=== PATIENT | male | born 1945 | race Caucasian/White ===

== ENCOUNTER → 2019-07-04 | Outpatient (CLI) | payer MEDICARE | END | disposition home or self-care (01) | LOC: RAH 12:47 | PROVIDERS: ATTEND Physical Medicine & Rehabilitation | DX: M47.816 Spondylosis without myelopathy or radiculopathy, lumbar region (principal); M25.78 Osteophyte, vertebrae; M48.061 Spinal stenosis, lumbar region without neurogenic claudication | CPT/HCPCS: 72100 ==

== ENCOUNTER → 2020-12-31 | Outpatient (CLI) | payer MEDICARE ==
[~2020-12-31] MED LIST: AEC81 PO; ASCO250T22 PO; ATOR40TA69 PO; CALC-1125 PO; CANN100S PO; FERR-82 PO; FEXO180T94 PO; FINA1TAB13 PO; GABA-529 PO; GABA300C PO; GUAI600T50 PO; HYDR-4060 PO; HYDR12.54 PO; IRBE300T18 PO; MAGN500C15 PO; MELA5CAP PO; MULT-1258 PO; OMEP-459 PO; RELIEF FACTOR PO; ROPI1TAB13 PO; ROPI2TAB7 PO; VITAMIN E PO; ZINC220T4 PO
== END | disposition home or self-care (01) ==
LOC: RAH 10:20
PROVIDERS: ATTEND Physical Medicine & Rehabilitation
DX: M47.816 Spondylosis without myelopathy or radiculopathy, lumbar region (principal); M51.27 Other intervertebral disc displacement, lumbosacral region; M48.061 Spinal stenosis, lumbar region without neurogenic claudication
CPT/HCPCS: 72148

== ENCOUNTER 2021-04-28 06:20 | Day surgery (SDC) | payer MEDICARE ==
[2021-04-25 11:30] LABS: BASOPHILS % (AUTO) 0.6 % (0.0-5.0); EOSINOPHILS % (AUTO) 2.9 % (0.0-8.0); HEMATOCRIT 40.3 % (42-54); LYMPHOCYTES % (AUTO) 30.1 % (21.0-51.0); MEAN CORPUSCULAR HEMOGLOBIN 31.2 pg (27.0-33.0); MEAN CORPUSCULAR HGB CONC 32.5 g/dL (32.0-36.0); MONOCYTES % (AUTO) 9.6 % (3.0-13.0); PLATELET COUNT (AUTO) 254 K/uL (130-400); RED CELL DISTRIBUTION WIDTH 15.6 % (11.0-15.5); WHITE BLOOD COUNT (AUTO) 7.7 K/uL (4.8-10.8)
[2021-04-25 11:48] LABS: CREATININE 0.9 mg/dL (0.5-1.5); POTASSIUM 4.3 mmol/L (3.5-5.1)
[2021-04-28] VITALS (11 sets, daily range): BP systolic 107–149; BP diastolic 56–74
[~2021-04-28 06:20] MED LIST changes: +ACET-2743 PO; -AEC81 PO; +ASCO125T PO; -ASCO250T22 PO; +ASPI-1443 PO; +ATOR-2 PO; -ATOR40TA69 PO; +CALC-1009 PO; -CALC-1125 PO; -CANN100S PO; +CELE200 PO; -FERR-82 PO; -FINA1TAB13 PO; -GABA-529 PO; -GABA300C PO; +GLUC-29 PO; -HYDR-4060 PO; -MAGN500C15 PO; -MELA5CAP PO; +NAPR220T57 PO; -OMEP-459 PO; +OMEP20TA25 PO; +PREG75CA75 PO; -RELIEF FACTOR PO; -ROPI1TAB13 PO; +ROPI2TAB29 PO; -ROPI2TAB7 PO; +TAMS-1 PO; +TRIA10.8 NS; -VITAMIN E PO; -ZINC220T4 PO; +ZINC50TA71 PO; +[UNRECOGNIZED DRUG - OTHER] PO; +tumeric PO
[2021-04-28] MEDS: CEFAZOLIN SODIUM 1 GM VIAL IVP SCH ×2 (07:00→08:37)
[2021-04-28] MEDS ORDERED: LACTATED RINGERS 1000ML 1,000 ML IV ONE (07:02)
[2021-04-28] MEDS ORDERED: BUPIVACAINE/PF 0.25% 30ML VIAL IJ ONE (07:52)
[2021-04-28] MEDS ORDERED: LIDOCAINE HCL MDV 0.5% 50ML VIAL IJ ONE (08:02)
[2021-04-28] MEDS ORDERED: LABETALOL 20MG VIAL IV ONE (08:02)
[2021-04-28] MEDS ORDERED: MIDAZOLAM HCL 1 MG/ML 2ML VIAL ONE (08:03)
[2021-04-28] MEDS ORDERED: PROPOFOL 10 MG/ML 20ML VIAL IV ONE ×2 (08:03→09:08)
[2021-04-28] MEDS ORDERED: KETOROLAC 30MG VIAL (30MG/ML) ONE (08:04)
[2021-04-28] MEDS ORDERED: FENTANYL CITRATE PF 50 MCG/1 ML 2ML VIAL ONE (08:08)
[2021-04-28] MEDS ORDERED: BUPIVACAINE/PF 0.5% 30ML VIAL ONE (08:31)
[2021-04-28] MEDS ORDERED: CEPH500B PO (09:32)
[2021-04-28] MEDS ORDERED: ACET1TAB25 PO (09:32)
== END 2021-04-28 10:35 ==
LOC: DAH 06:20
PROVIDERS: ATTEND Orthopaedic Surgery
DX: G56.01 Carpal tunnel syndrome, right upper limb (principal); M25.531 Pain in right wrist; R29.898 Other symptoms and signs involving the musculoskeletal system; I10 Essential (primary) hypertension; Z79.01 Long term (current) use of anticoagulants; Z79.899 Other long term (current) drug therapy
CPT/HCPCS: 36415; 64721; 80048; 85025; 87635; 93005; A4213; A4215 ×2; A4221; A4222; A4223; A4565; A4663; A4930 ×2; A5120; A6223; C9803; J0690; J1885; J2250; J2704 ×2; J3010; J3490 ×3; J7120

== ENCOUNTER → 2021-09-09 | Outpatient (CLI) | payer MEDICARE ==
[~2021-09-09] MED LIST changes: +ACET-2079 PO; +CEPH500B PO; +OMEP20TA20 PO; -OMEP20TA25 PO
== END | disposition home or self-care (01) ==
LOC: RAH 10:23
PROVIDERS: ATTEND Physical Medicine & Rehabilitation
DX: M47.22 Other spondylosis with radiculopathy, cervical region (principal); Z98.1 Arthrodesis status
CPT/HCPCS: 72141

== ENCOUNTER 2022-05-18 09:57 | Emergency (ER) | payer MEDICARE ==
[~2022-05-18] VITALS: Ht 188 cm; Wt 108.9 kg
[2022-05-18 10:31] LABS: BASOPHILS % (AUTO) 0.8 % (0.0-5.0); EOSINOPHILS % (AUTO) 1.7 % (0.0-8.0); HEMATOCRIT 40.5 % (42-54); LYMPHOCYTES % (AUTO) 33.7 % (21.0-51.0); MEAN CORPUSCULAR HEMOGLOBIN 29.5 pg (27.0-33.0); MEAN CORPUSCULAR HGB CONC 33.8 g/dL (32.0-36.0); MEAN CORPUSCULAR VOLUME 87.3 fL (79-99); MONOCYTES % (AUTO) 10.5 % (3.0-13.0); NEUTROPHILS % (AUTO) 52.6 % (40.0-77.0); PLATELET COUNT (AUTO) 224 K/uL (130-400); RED BLOOD CELL COUNT(AUTO) 4.64 MIL/uL (4.50-6.20); RED CELL DISTRIBUTION WIDTH 15.3 % (11.0-15.5); WHITE BLOOD COUNT (AUTO) 7.2 K/uL (4.8-10.8)
[2022-05-18 10:37] LABS: APPEARANCE,URINE CLEAR (CLEAR); BILIRUBIN,URINE NEGATIVE (NEGATIVE); COLOR,URINE LIGHT-YELLOW (YELLOW); GLUCOSE, URINE (UA) NEGATIVE (NEGATIVE); KETONES,URINE NEGATIVE (NEGATIVE); LEUKOCYTE ESTERASE ,URINE NEGATIVE Leu/uL (NEGATIVE); NITRATE,URINE NEGATIVE (NEGATIVE); OCCULT BLOOD,URINE NEGATIVE (NEGATIVE); PH,URINE 5.5 (5.0-8.0); PROTEIN,URINE NEGATIVE (NEGATIVE); UROBILINOGEN,URINE 0.2 mg/dL (0.2-1.0)
[2022-05-18 10:46] LABS: POTASSIUM 4.5 mmol/L (3.5-5.1)
[2022-05-18 10:48] LABS: B-TYPE NATRIURETIC PEPTIDE 31 pg/mL (0-100)
[2022-05-18 10:51] LABS: ALBUMIN 3.7 g/dL (3.5-5.0); TOTAL PROTEIN, SERUM 7.7 g/dL (6.0-8.3)
[2022-05-18] MEDS ORDERED: 0.9%NACL 1000ML 1,000 ML IV ONE (12:00)
[2022-05-18 12:52] VITALS: BP 156/78
== END 2022-05-18 13:04 | disposition home or self-care (01) ==
LOC: EDH 09:57
DX: F41.9 Anxiety disorder, unspecified (principal); E86.0 Dehydration; I10 Essential (primary) hypertension; E78.5 Hyperlipidemia, unspecified; Z79.899 Other long term (current) drug therapy; Z20.822 Contact with and (suspected) exposure to COVID-19
CPT/HCPCS: 99285; 84484; 80053; 83880; 85025; 87804 ×2; 81003; 36415; 87635; 71045; 96360; 93005; C9803; J7030

== ENCOUNTER → 2023-07-12 | Outpatient (CLI) | payer MEDICARE ==
[~2023-07-12] MED LIST changes: -IRBE300T18 PO; +IRBE300T26 PO; -PREG75CA75 PO; +PREG75CA76 PO
== END | disposition home or self-care (01) ==
LOC: RAH 10:41
PROVIDERS: ATTEND Physician Assistant
DX: M47.816 Spondylosis without myelopathy or radiculopathy, lumbar region (principal); M51.27 Other intervertebral disc displacement, lumbosacral region; M48.07 Spinal stenosis, lumbosacral region
CPT/HCPCS: 72148

== ENCOUNTER 2023-09-05 09:50 | Emergency (ER) | payer MEDICARE ==
[~2023-09-05] VITALS: Ht 188 cm; Wt 111.1 kg
[2023-09-05] MEDS: METOCLOPRAMIDE 10 MG/2 ML VIAL IVP ONE (10:35)
[2023-09-05] MEDS: FAMOTIDINE 20MG VIAL IV ONE (10:35)
[2023-09-05] MEDS: DIAZEPAM 5 MG/ML 2 ML SYG IVP ONE (10:36)
[2023-09-05] MEDS: KETOROLAC 30MG VIAL (30MG/ML) IVP ONE (10:36)
[2023-09-05 11:32] VITALS: BP 192/89; PULSE 60; RESP 16; O2SAT 95
[2023-09-05] MEDS: FENTANYL CITRATE PF 50 MCG/1 ML 2ML VIAL IVP ONE (11:46)
[2023-09-05] MEDS ORDERED: CYCL10TA16 PO (13:19)
[2023-09-05] MEDS ORDERED: MELO-106 PO (13:19)
[2023-09-05] MEDS ORDERED: ACET-2079 PO (13:19)
== END 2023-09-05 13:29 | disposition home or self-care (01) ==
LOC: EDH 09:50
DX: M47.898 Other spondylosis, sacral and sacrococcygeal region (principal); M54.50 Low back pain, unspecified; I10 Essential (primary) hypertension; E78.00 Pure hypercholesterolemia, unspecified; E11.9 Type 2 diabetes mellitus without complications; K21.9 Gastro-esophageal reflux disease without esophagitis; Z96.641 Presence of right artificial hip joint; Z91.030 Bee allergy status; Z79.899 Other long term (current) drug therapy
CPT/HCPCS: 99284; 96374; 96375; 72110; 72220; J3490; J3010; J3360; J1885; J2765

== ENCOUNTER 2023-09-08 08:37 | Emergency (ER) | payer MEDICARE ==
[~2023-09-08] VITALS: Ht 190.5 cm; Wt 111.1 kg
[~2023-09-08 08:37] MED LIST changes: +CYCL10TA16 PO; +MELO-106 PO
[2023-09-08] MEDS: FAMOTIDINE 20MG VIAL IV ONE (09:26)
[2023-09-08] MEDS: METOCLOPRAMIDE 10 MG/2 ML VIAL IVP ONE (09:26)
[2023-09-08] MEDS: HYDROMORPHONE 1 MG INJ IVP ONE (09:27)
[2023-09-08] MEDS: KETOROLAC 30MG VIAL (30MG/ML) IVP ONE (09:27)
[2023-09-08] MEDS: DIAZEPAM 5 MG/ML 2 ML SYG IVP ONE (09:27)
[2023-09-08 09:38] LABS: HEMATOCRIT 36.5 % (42-54); MEAN CORPUSCULAR HEMOGLOBIN 31.7 pg (27.0-33.0); MEAN CORPUSCULAR HGB CONC 34.2 g/dL (32.0-36.0); MEAN CORPUSCULAR VOLUME 92.6 fL (79-99); PLATELET COUNT (AUTO) 252 K/uL (130-400); RED BLOOD CELL COUNT(AUTO) 3.94 MIL/uL (4.50-6.20); RED CELL DISTRIBUTION WIDTH 13.5 % (11.0-15.5); WHITE BLOOD COUNT (AUTO) 10.8 K/uL (4.8-10.8)
[2023-09-08 09:43] LABS: CREATININE 0.9 mg/dL (0.5-1.3); POTASSIUM 5.5 mmol/L (3.5-5.1)
[2023-09-08 10:53] LABS: LYMPHOCYTES % (MANUAL) 35 % (22-44); MAN.DIFF COMMENT-IMPRESSION MANUAL DIFFERENTIAL; MONOCYTES % (MANUAL) 5 % (2-9); PLATELET MORPHOLOGY COMMENT ADEQUATE; SEGMENTED NEUTROPHILS % 60 % (40-70); TOTAL CELLS COUNTED 100; WBC MORPHOLOGY CONSISTENT W/DIFF
[2023-09-08 13:59] VITALS: BP 141/76; PULSE 64; RESP 18; O2SAT 99
[2023-09-08] MEDS: HYDROMORPHONE 0.5 MG SYG (0.5MG/0.5ML) IVP ONE (15:13)
== END 2023-09-08 13:23 | disposition short-term general hospital (02) ==
LOC: EDH 08:37
DX: M47.816 Spondylosis without myelopathy or radiculopathy, lumbar region (principal); M48.061 Spinal stenosis, lumbar region without neurogenic claudication; I10 Essential (primary) hypertension; E11.9 Type 2 diabetes mellitus without complications; E78.00 Pure hypercholesterolemia, unspecified; K21.9 Gastro-esophageal reflux disease without esophagitis; Z79.82 Long term (current) use of aspirin; Z79.899 Other long term (current) drug therapy; Z98.890 Other specified postprocedural states; Z91.030 Bee allergy status; Z96.641 Presence of right artificial hip joint
CPT/HCPCS: 99285; 96374; 96375; 80048; 85025; 36415; J3490; J1170 ×2; J3360; J1885; J2765

== ENCOUNTER → 2024-03-20 | Outpatient (CLI) | payer MEDICARE ==
--- NOTE | 2024-03-20 12:50 | HMCIMG ---
SCOLIOSIS 2-3VW REASON: Acquired scoliosis. COMPARISON: None TECHNIQUE: 5 images of scoliosis series were obtained. FINDINGS: Orthopedic fixation plates and screws are seen traversing the T8-T12 levels limiting evaluation. There is kyphosis of the thoracic spine. There is mild dextroscoliosis with scoliotic angle of 2.6 degrees. IMPRESSION: Mild dextroscoliosis as described above.
== END | disposition home or self-care (01) ==
LOC: RAH 10:08
PROVIDERS: ATTEND Physician Assistant
DX: M40.294 Other kyphosis, thoracic region (principal)
CPT/HCPCS: 72082